=== PATIENT | male | born 1990 | race Caucasian/White ===

== ENCOUNTER 2020-07-03 12:11 | Emergency (ER) | payer SELFPAY ==
[~2020-07-03] VITALS: Ht 165.1 cm; Wt 68.5 kg
[2020-07-03 12:16] VITALS: BP 118/99
--- NOTE | 2020-07-03 12:18 | NUR ---
PT AMBULATED TO BED 11 WITH STEADY GAIT
--- NOTE | 2020-07-03 12:19 | NUR ---
29 Y/O MALE C/O MID ABD PAIN WITH VOMITING X2 HOURS. PT STATES HE ATE SALSA 30 MINS AGO AND NOW ITS WORSE. PT RATES PAIN 8/10 THAT IS THROBBING/PULSING, NONRADIATING. PT DENIES TAKING ANYTHING. PT STATES HIS ABD PAIN CAUSES CHEST TO HAVE TINGLING SENSATION. ON ASSESSMENT, ABD IS FLAT, SOFT, AND NONTENDER WITH ACTIVE BOWEL SOUNDS X4 QUADS. PT LBM TODAY THAT WAS NORMAL. DENIES FEVER/CP/SOB/D. PT IS A/O X4 WITH EVEN AND UNLABORED RESPITATIONS. PT LAYING IN BED WITH BED IN LOWEST POSITION, BRAKES LOCKED, X1 SIDERAIL UP. PT GIVEN EMESIS BAG. MEDHX: DENIES NKA
--- NOTE | 2020-07-03 12:36 | NUR ---
PT AMBULATED TO RESTROOM FOR URINE SAMPLE
--- NOTE | 2020-07-03 12:41 | NUR ---
Dr. Payne at pt bedside for further evaluation.
[2020-07-03 12:51] LABS: BASOPHILS % (AUTO) 0.6 % (0.0-2.0); EOSINOPHILS # (AUTO) 0.2 K/uL (0-0.4); HEMATOCRIT 45.2 % (36-52); HEMOGLOBIN 15.4 g/dL (12.0-18.0); LYMPHOCYTES # (AUTO) 1.5 K/uL (2.0-11.5); LYMPHOCYTES % (AUTO) 16.7 % (20.5-51.1); MEAN CORPUSCULAR HEMOGLOBIN 31 pg (27-31); MEAN CORPUSCULAR HGB CONC 34 g/dL (33-37); MEAN CORPUSCULAR VOLUME 91.7 fL (80-94); MONOCYTES # (AUTO) 0.3 K/uL (0.8-1.0); MONOCYTES % (AUTO) 3.2 % (1.7-9.3); NEUTROPHILS # (AUTO) 6.8 K/uL (1.8-7.7); NEUTROPHILS % (AUTO) 77.5 % (42.2-75.2); PLATELET COUNT (AUTO) 222 K/uL (140-450); RED BLOOD CELL COUNT(AUTO) 4.94 MIL/uL (4.20-6.10); RED CELL DISTRIBUTION WIDTH 12.8 % (11.6-13.7); WHITE BLOOD COUNT (AUTO) 8.8 K/uL (4.8-10.8)
[2020-07-03] MEDS: METOCLOPRAMIDE 10 MG/2 ML INJ VIAL IVP ONE (12:55)
[2020-07-03] MEDS: NACL 0.9% 1,000 ML IV ONE (12:56)
[2020-07-03 13:13] LABS: APPEARANCE,URINE CLEAR (CLEAR); BILIRUBIN,URINE NEGATIVE (NEGATIVE); BLOOD, URINE NEGATIVE (NEGATIVE); COLOR,URINE YELLOW (YELLOW); LEUKOCYTE ESTERASE ,URINE NEGATIVE (NEGATIVE); NITRITE, URINE NEGATIVE (NEGATIVE); UGLUCOSE NEGATIVE (NEGATIVE)
[2020-07-03 13:20] LABS: ALBUMIN 4.6 g/dL (3.4-5.0); ANION GAP 10.8 (8-16); CARBON DIOXIDE 30.7 mmol/L (21-32); CREATININE 1.2 mg/dL (0.6-1.3); POTASSIUM 3.5 mmol/L (3.5-5.1); TOTAL BILIRUBIN 0.5 mg/dL (0.0-1.0)
--- NOTE | 2020-07-03 13:35 | NUR ---
PT LAYING IN BED WITH EVEN AND UNLABORED RESPIRATIONS. BED IN LOWEEST POSITION, BRAKES LOCKED, X1 SIDERAIL UP. WILL CONTINUE TO MONITOR.
[2020-07-03 14:13] VITALS: BP 118/99
--- NOTE | 2020-07-03 14:14 | NUR ---
Patient discharged with v/s stable. Written and verbal after care instructions given and explained. Patient verbalized understanding. Ambulatory with steady gait. All questions addressed prior to discharge. Advised to follow up with PMD.
== END 2020-07-03 14:14 | disposition home or self-care (01) ==
LOC: MED 12:11
DX: R11.10 Vomiting, unspecified (principal); R10.84 Generalized abdominal pain
CPT/HCPCS: 36415; 80053; 81003; 83690; 85025; 96361; 96374; 99283; J2765